=== PATIENT | female | born 1940 | race Caucasian/White ===

== ENCOUNTER 2022-10-05 19:31 | Emergency (ER) | payer MEDICARE, SELFPAY ==
--- NOTE | ~2022-10-05 | XR_ITS ---
EXAMINATION: XR hip BI 2V w AP pelvis DATE: 10/05/2022 20:41 INDICATION: Unwitnessed fall TECHNIQUE: Anteroposterior view of the pelvis and anteroposterior and frog-leg lateral views of the l eft hip and anteroposterior and frog-leg lateral views of the right hip and were obtained. COMPARISON: Lumbar spine radiographs dated 07/08/2019 FINDINGS: Old healed fractures of the bilateral superior and inferior pubic rami. No acute fractures identified although sensitivity for nondisplaced fractures decreased by diffuse osteopenia. Bilateral hips are normal alignment with normal joint spaces. Severe lower lumbar spondylosis. IMPRESSION: 1. Old bilateral superior and inferior pubic rami fractures. No acute osseous abnormality. Reviewed, dictated and finalized at location A. R CASE DETECTIVE IMPRESSION: 1. Old bilateral superior and inferior pubic rami fractures. No acute osseous a bnormality.
--- NOTE | ~2022-10-05 | CT_ITS ---
EXAMINATION: CT brain wo con DATE: 10/05/2022 20:48 INDICATION: Anticoagulated patient with unwitnessed fall from wheelchair. TECHNIQUE: Computed tomography (CT) of the head was performed without intravenous contrast. Sagittal and coronal reconstructions were performed. The mA was adjusted according to patient size. Iterative reconstruction technique was employed. The dose-length product was 605.33 mGy-cm. COMPARISON: None FINDINGS: No fracture. No acute intracranial hemorrhage, acute infarction or abnormal extra axial fluid collect ion. There is extensive scattered white matter hypoattenuation consistent with chronic small vessel i schemic disease. Symmetric prominence of the sulci and ventricles consistent with moderate age-approp riate diffuse cerebral volume loss. No mass/mass effect. Changes of bilateral intraocular lens replac ement. The orbits, paranasal sinuses and mastoid air cells are normal. Intracranial calcified cerebra l atherosclerosis is noted. IMPRESSION: 1. No fracture or acute intracranial process. 2. Age-related changes including moderate diffuse volume loss and extensive scattered white matter hy poattenuation consistent with chronic small vessel ischemic disease. Reviewed, dictated and finalized at location A. PLATFORM SUPERVISOR IMPRESSION: 1. No fracture or acute intracranial process. 2. Age-related changes including moderate diffuse volume loss and extensive sca ttered white matter hypoattenuation consistent with chronic small vessel ischem ic disease.
--- NOTE | ~2022-10-05 | XR_ITS ---
EXAMINATION: XR chest 1V portable DATE: 10/05/2022 20:41 INDICATION: Fall TECHNIQUE: frontal view of the chest was obtained. COMPARISON: Chest radiograph dated 07/08/[address] dated 07/13/2019 FINDINGS: The lungs are clear with no focal airspace opacities, pulmonary edema, pleural effusion or pneumothor ax. The cardiomediastinal silhouette is normal. Mitral annular calcifications. Excessive atherosclero tic calcification is along the thoracic aorta. A few old right rib fractures. Right rotator cuff arth ropathy with advanced glenohumeral osteoarthritis. IMPRESSION: 1. No acute cardiopulmonary disease. Reviewed, dictated and finalized at location A. ER
--- NOTE | ~2022-10-05 | CT_ITS ---
EXAMINATION: CT cervical spine wo con DATE: 10/05/2022 20:48 INDICATION: Unwitnessed fall from wheelchair TECHNIQUE: Computed tomography (CT) of the cervical spine was performed without intravenous contrast. Automated exposure control and iterative reconstruction technique were employed. The dose-length pro duct was 93.35 mGy-cm. COMPARISON: None FINDINGS: Moderate osteoarthritis at the atlantoaxial articulation. Chronic appearing nonunited fracture with s clerotic margins beginning at the left side of the base of the dens and extending inferiorly into the right across the cephalad portion of the vertebral body below the level of the base of the right lat eral mass. There is a second chronic appearing fracture extending between the right lateral mass and the right inferior articular process of C2. There is only mild displacement at both fracture planes. Mild exaggerated cervical kyphosis. Vertebral body heights are normal. No other acute fractures ident ified. Severe disc height loss and associated uncovertebral osteoarthritis at C3-C4 through C5-C6. Po sterior endplate osteophytes at each of these levels result in mild central canal stenosis. There is also bilateral multilevel moderate to severe facet osteoarthritis in the cervical and upper thoracic spine. This contributes to multilevel mild neural foraminal stenosis throughout the cervical spine. A therosclerotic calcific changes at the bilateral carotid bulbs. Cervical soft tissues are otherwise u nremarkable. Mild biapical pleural-parenchymal scarring with mild bronchial wall thickening and mucou s plugging a few prominent at the bilateral apices of the lungs. IMPRESSION: 1. Mild displacement of a chronic appearing nonunited fracture of C2 which extends across the base of the dens, also involving the right side of the cephalad vertebral body and the right lateral mass. C orrelate with clinical history. No other evident acute osseous abnormality. 2. Severe cervical spondylosis. Reviewed, dictated and finalized at location A. OPERATIONS MANAGER IMPRESSION: 1. Mild displacement of a chronic appearing nonunited fracture of C2 which exte nds across the base of the dens, also involving the right side of the cephalad vertebral body and the right lateral mass. Correlate with clinical history. No other evident acute osseous abnormality. 2. Severe cervical spondylosis.
[2022-10-05 19:32] VITALS: BP 153/93; PULSE 94; RESP 18; TEMP 36.3; O2SAT 100
--- NOTE | 2022-10-05 20:18 | ED.FALL ---
HPI - Fall General Chief Complaint: Fall <SIRIA Ly Last Filed: 10/05/22 23:21> Stated Complaint: fall <SIRIA Ly Last Filed: 10/05/22 23:21> Time Seen by Provider: 10/05/22 19:42 <SIRIA Ly Last Filed: 10/05/22 23:21> Source: patient and EMS <SIRIA Ly Last Filed: 10/05/22 23:21> Mode of arrival: EMS <SIRIA Ly Last Filed: 10/05/22 23:21> Limitations: dementia <SIRIA Ly Last Filed: 10/05/22 23:21> History of Present Illness HPI Narrative: This is an 82-year-old female that presents to the emergency department after a fall today at nursing facility. Patient reports she was in her kitchen and got her legs tangled up and fell. She does not report any certain injuries from the fall. Per nursing facility she fell out of her wheelchair. The fall was not witnessed. They are also reporting her being on blood thinners. Denies chest pain, abdominal pain, or vomiting. <SIRIA Ly Last Filed: 10/05/22 23:21> Related Data Allergies/Adverse Reactions: Allergies Allergy/AdvReac Type Severity Reaction Status Date / Time No Known Allergies Allergy Verified 10/03/22 12:15 <SIRIA Ly Last Filed: 10/05/22 23:21> Review of Systems Review of Systems: CONSTITUTIONAL: Denies fever EYES: Denies visual changes CARDIOVASCULAR: Denies chest pain, or edema. RESPIRATORY: Denies dyspnea. GASTROINTESTINAL: Denies abdominal pain, nausea, vomiting GENITOURINARY: Denies dysuria SKIN: Denies rash MUSCULOSKELETAL: Denies back pain, joint pain, or myalgia. NEUROLOGIC: Denies headache PSYCHIATRIC: Denies anxiety <SIRIA Ly Last Filed: 10/05/22 23:21> All systems reviewed & are unremarkable except as noted in HPI and below <Martha Lozoya PA-C - Last Filed: 10/05/22 23:21> [facility] Past Medical History Medical History: Medical History (Updated 10/07/22 @ 00:00 by Rosalia Sandhu) Cyst of buttocks Dementia Essential (primary) hypertension Odontoid fracture <Martha Lozoya PA-C - Last Filed: 10/05/22 23:21> Family History Family History: Family History Other Cerebrovascular accident Mother Hypertension <Martha Lozoya PA-C - Last Filed: 10/05/22 23:21> Social History Social History: Social History Smoking status: Never smoker <Martha Lozoya PA-C - Last Filed: 10/05/22 23:21> Exam Narrative: GENERAL: Elderly, thin, and in no acute distress. HEAD: Normocephalic, atraumatic. EYES: PERRLA and EOMI. ENT: Nares clear, no rhinorrhea or epistaxis. Mucous membranes moist. Oropharynx without tonsillar hypertrophy exudate or other lesions. Bilateral TMs pearly mir non-bulging NECK: Supple. No adenopathy or masses. CHEST: Clear to auscultation. No respiratory distress. No wheezes rales or rhonchi HEART: Regular rate and rhythm. No murmur heard. Normal peripheral pulses. ABDOMEN: Soft, nontender, nondistended, normal active bowel sounds. BACK: No midline thoracic or lumbar spine tenderness EXTREMITIES: Normal range of motion. No edema or obvious deformity. SKIN: Warm, dry, no rash. NEURO: No focal deficits. Alert and oriented x3. CN II-XII grossly intact PSYCH: Normal mood and affect <Martha Lozoya PA-C - Last Filed: 10/05/22 23:21> Course Course Emergency Course: Patient was updated on workup. Resting comfortably <Martha Lozoya PA-C - Last Filed: 10/05/22 23:21> AUTO GLASS WORKER/PA Physician Supervision For this encounter, I have reviewed the mid-level provider documentation, treatment plan and medical decision making. I have had [id number] time with the patient. physical exam revealed a 82-year-old female with no physical complaints at this time. I did do a thorough head-to-toe examination and I could find no areas of tender
[2022-10-05 21:03] LABS: Basophils Percent Auto 0.3 % (0.2-1.2); Eosinophils Absolute Auto 0.1 K/mm3 (0-0.3); Eosinophils Percent Auto 1.3 % (0-4.4); Hemoglobin 8.7 g/dL (12.0-15.0); Immature Granulocyte Absolute 0.07 K/mm3 (0.00-0.031); Immature Granulocyte Percent A 0.7 % (0-0.5); Lymphocytes Percent Auto 11.9 % (18.3-44.2); Mean Corpuscular HGB Conc 33.5 g/dl (32-36); Mean Corpuscular Hemoglobin 30.4 pg (26-34); Mean Corpuscular Volume 90.9 fl (80-100); Mean Platelet Volume 7.9 fl (7.4-10.4); Monocytes Percent Auto 9.7 % (2.6-8.5); Neutrophils Absolute Auto 7.7 K/mm3 (1.3-6.7); Neutrophils Percent Auto 76.1 % (45.5-73.1); Platelet Count Result 321 k/mm3 (150-375); Red Blood Count 2.86 M/mm3 (4.2-5.4); Red Cell Distribution Width 14.8 % (11.5-14.5); White Blood Count 10.1 K/mm3 (4.5-10.0)
[2022-10-05 21:17] LABS: Anion Gap 7 mmol/L (8-16); Blood Urea Nitrogen 18 mg/dL (7-17); Calcium 8.6 mg/dL (8.4-10.2); Carbon Dioxide 33 mmol/L (22-30); Chloride 90 mmol/L (98-107); Estimated CRCL calculation 54 ml/min; Estimated Glomerular Filt Rate > 60; Glucose 117 mg/dL (65-110); Potassium 2.9 mmol/L (3.4-5.0); Sodium 130 mmol/L (137-145)
[2022-10-05 21:23] LABS: Add Urine Microscopic? YES; Appearance Urine Clear (Clear); Bilirubin Urine Negative (Negative); Blood Urine 2+ (Negative); Color Urine Light Yellow (Yellow); Glucose Urine UA Negative (Negative); Ketones Urine Negative (Negative); Leukocyte Esterase Ur 1+ LEU/UL (Negative); Nitrate Urine Negative (Negative); Protein Urine Negative (Negative); Urobilinogen Urine 0.2 mg/dL (<2.0)
[2022-10-05 21:28] LABS: Amorphous Sediment Urine Few; Bacteria Urine Trace /hpf; Budding Yeast Urine Present /hpf; Mucus Urine Rare /lpf; Squamous Epithelial Cell Urine Many /hpf (Few); WBC Urine 16-20 /hpf
[2022-10-05] MEDS: POTASSIUM CHLORIDE 20 MEQ PACKET (FOR LIQUID) 40 MEQ PO ×2 (22:13→23:22)
--- NOTE | 2022-10-05 22:59 | PC.NURSE ---
called [facility] to request transport. ETA [id number]
--- NOTE | 2022-10-05 23:01 | PC.NURSE ---
called [facility] to request transport. Accepted
--- NOTE | 2022-10-05 23:06 | PC.NURSE ---
[facility] called with ETA of 1 - 1 1/2 hour.
--- NOTE | 2022-10-05 23:09 | PC.NURSE ---
cancelled [facility]
[2022-10-05 23:24] VITALS: BP 148/88; PULSE 88; RESP 20; O2SAT 100
--- NOTE | 2022-10-05 23:50 | PC.NURSE ---
[facility] here
== END 2022-10-06 00:04 ==
PROVIDERS: Physician Assistant; Emergency Provider Emergency Medicine; PCP Internal Medicine
DX: N39.0 Urinary tract infection, site not specified (principal); E87.6 Hypokalemia; E87.1 Hypo-osmolality and hyponatremia; F03.90 Unspecified dementia, unspecified severity, without behavioral disturbance, psychotic disturbance, mood disturbance, and anxiety; I10 Essential (primary) hypertension; M47.812 Spondylosis without myelopathy or radiculopathy, cervical region; Z79.01 Long term (current) use of anticoagulants; M84.48XK Pathological fracture, other site, subsequent encounter for fracture with nonunion; W19.XXXA Unspecified fall, initial encounter
CPT/HCPCS: 36415; 70450; 71045; 72125; 73521; 80048; 81001; 85025; 87086; 87088; 99284; A9270

== ENCOUNTER → 2023-02-21 11:09 | Outpatient (CLI) | payer MEDICARE, SELFPAY ==
--- NOTE | ~2023-02-21 | XR_ITS ---
AP and lateral views of the left hip Clinical history: Pain Findings: No acute fracture or dislocation is seen. Osseous alignment is anatomic. The left hip joint is unremarkable.. Vascular calcifications are noted. Impression: No significant abnormality is seen. Reviewed, dictated and finalized at location . Impression: No significant abnormality is seen.
--- NOTE | ~2023-02-21 | XR_ITS ---
AP and lateral views of the left femur Clinical History: Pain Findings: No acute fracture or dislocation is seen. Osseous alignment is anatomic. Visualized joint s paces are grossly preserved. Vascular calcifications noted. Impression: No significant abnormality seen. Reviewed, dictated and finalized at location . Impression: No significant abnormality seen.
== END ==
PROVIDERS: PCP Family Medicine Adolescent Medicine; Visit Provider Family Medicine Adolescent Medicine
DX: M79.652 Pain in left thigh (principal)
CPT/HCPCS: 73502; 73552

== ENCOUNTER 2023-08-22 16:25 | Inpatient (IN) | payer MEDICARE, SELFPAY ==
--- NOTE | ~2023-08-22 | CT_ITS ---
EXAMINATION: CT abd pelvis lumbar w con DATE: 08/22/2023 20:43 INDICATION: Abdomen pain. Urinary retention. TECHNIQUE: Computed tomography (CT) of the abdomen, pelvis and lumbar spine was performed with 100 cc Omnipaque 350 intravenous contrast. The dose-length product was 186.57 mGy-cm. Automated exposure co ntrol and iterative reconstruction technique were employed. COMPARISON: CT dated 07/13/2019 FINDINGS: Lung bases are unremarkable. Heart size normal. No significant pleural or pericardial effus ion. The liver is enlarged. The spleen, pancreas, right adrenal gland is unremarkable. There is a 1.6 cm low-density mass in the left adrenal gland, most likely benign adenoma. There are bilateral renal cysts. Gallbladder is present. Nonobstructive bowel gas pattern. There is a new burst fracture of L2 with retropulsion into the canal causing central canal and bilateral neuroforaminal narrowing, left greater than right. There is severe degenerative disc disease at L4-5 with grade 1 spondylolisthesis. There are bilateral inferior pubic rami fractures which are healed. There is atherosclerosis and ect vasyl of the abdominal aorta without aneurysm. There is moderate multilevel lumbar spondylosis with de xtroscoliosis. IMPRESSION: 1. New L2 burst fracture, possibly acute or subacute with retropulsion into the canal causing signifi cant central canal and bilateral neural foraminal stenosis. 2: Hepatomegaly. Reviewed, dictated and finalized at location A. IMPRESSION: 1. New L2 burst fracture, possibly acute or subacute with retropulsion into the canal causing significant central canal and bilateral neural foraminal stenosi s. 2: Hepatomegaly.
--- NOTE | ~2023-08-22 | MR_ITS ---
EXAMINATION: MR lumbar spine wo/w con DATE: 08/23/2023 09:05 INDICATION: Back pain. Urinary retention. TECHNIQUE: Magnetic resonance imaging (MRI) of the lumbar spine was performed without and with 7 mL M ultiHance intravenous contrast. COMPARISON: Lumbar spine MRI 07/11/2019, CT 08/22/2023 FINDINGS: There is 17 degrees dextroscoliosis of thoracolumbar spine. There is a burst fracture of T1 0 with less than 1/5 height loss, retropulsion of bone 2 mm into central spinal canal, and distinct f racture line with edema-like marrow signal intensity. There is a burst fracture of L2 with greater th an 4/5 loss of height, retropulsion bone 6 mm into central spinal canal, and edema-like marrow signal intensity. There is 4 mm anterolisthesis of L4 on L5. There is mildly decreased disc height at L3-L4 and severely decreased disc height at L4-L5. The distal spinal cord signal intensity is normal. The conus medullaris is at L1. There are cysts in the kidneys measuring up to 11 mm on the left. The foll owing disc levels are specifically discussed: L1-L2: The disc does not extend beyond the endplate margin. There is mild bilateral facet joint osteo arthritis. There is mild bilateral neural foraminal stenosis. There is no central canal stenosis. L2-L3: The disc does not extend beyond the endplate margin. There is mild bilateral facet joint osteo arthritis. There is moderate right and mild left neural foraminal stenosis. There is mild central can al stenosis. L3-L4: The disc is bulging. There is mild bilateral facet joint osteoarthritis. There is mild bilater al neural foraminal stenosis. There is mild central canal stenosis. L4-L5: The disc does not extend beyond the endplate margin. There is severe bilateral facet joint ost eoarthritis. There is mild bilateral neural foraminal stenosis. There is mild central canal stenosis. L5-S1: The disc is bulging. There is severe bilateral facet joint osteoarthritis. There is mild bilat eral neural foraminal stenosis. There is mild central canal stenosis. IMPRESSION: 1. T10 burst fracture, likely subacute. 2. L2 burst fracture, likely subacute. 3. Severe lumbar spondylosis. 4. Thoracolumbar dextroscoliosis. Reviewed, dictated and finalized at location E.
[2023-08-22 16:31] VITALS: BP 137/70; PULSE 110; RESP 18; TEMP 36.6; O2SAT 100
[2023-08-22 18:03] LABS: Appearance Urine Clear (Clear); Bilirubin Urine Negative (Negative); Blood Urine Negative (Negative); Color Urine Yellow (Yellow); Glucose Urine UA Negative (Negative); Ketones Urine Negative (Negative); Leukocyte Esterase Ur Negative LEU/UL (Negative); Nitrate Urine Negative (Negative); Protein Urine Negative (Negative); Specific Grav Ur 1.011 (1.001-1.035); Urobilinogen Urine 0.2 mg/dL (<2.0)
[2023-08-22 18:11] LABS: Add Urine Microscopic? NO
--- NOTE | 2023-08-22 18:52 | ED.FEMALEGU ---
HPI - Female Genitourinary General Chief complaint: Urogenital-Female Stated complaint: unable to pee since 10am Time Seen by Provider: 08/22/23 18:51 History of Present Illness HPI Narrative: Patient is an 83-year-old female with history of dementia, HTN here with abdominal pain, back pain and urinary retention. patient notes that she last urinated yesterday before she went to bed, unknown what time this was. This morning she states that she was unable to urinate. She then began experiencing diffuse lower back pain, worse on the sides and on the midline. She denies any falls. She denies any prior history of back issues. She denies any saddle anesthesia or numbness or weakness in her lower extremities. She notes she had some increased back pain throughout the day today and continued to be unable to urinate which was the reason for presentation to the emergency department. She notes she continues to have lower back pain and abdominal pain even after catheter was placed by nursing staff. She denies fever or chills. She notes normal bowel movements. No prior abdominal surgeries. No prior history of urinary retention or incontinence. No recent changes in medications. Related Data Allergies Allergy/AdvReac Type Severity Reaction Status Date / Time No Known Allergies Allergy Verified 02/15/23 09:48 Review of Systems Review of Systems: All systems reviewed & are unremarkable except as noted in HPI and below PMFSH Past Medical History Medical History (Updated 08/22/23 @ 21:45 by Kristina Johnson MD) Cyst of buttocks Dementia Essential (primary) hypertension Odontoid fracture Family History Family History Other Cerebrovascular accident Mother Hypertension Social History Social History Smoking status: Never smoker Exam Narrative: GENERAL: Cachectic, and in no acute distress. HEAD: Normocephalic, atraumatic. EYES: PERRLA and EOMI. ENT: Nares clear. Mucous membranes moist. NECK: Supple. CHEST: Clear to auscultation. No respiratory distress. HEART: Tachycardic. Normal peripheral pulses. ABDOMEN: Diffusely tender, no rebound or guarding. EXTREMITIES: Normal range of motion. No edema. no midline lumbar tenderness but she does have bilateral paraspinal tenderness in the lumbar area. SKIN: Warm, dry, no rash. NEURO: No focal deficits. Alert and oriented x3. PSYCH: Normal mood and affect. Course Course Emergency Course: Chart review performed. Patient here with decreased urination per triage note. Last visit here was about 1 year ago for UTI. Documented history of dementia and HTN. Triage vitals normal aside from tachycardia at 110. Triage UA negative for UTI. Catheter placed by nursing with 500 cc output. Patient seen evaluated, no acute distress. History obtained from patient and family at bedside. Reproducible bilateral paraspinal lumbar tenderness as well as diffuse abdominal tenderness. We will do CT abdomen pelvis as well as CT lumbar spine reconstitution. Small dose of morphine ordered for pain. Lab work reviewed. Mild leukocytosis of 11.2, non specific. Renal function appears to be at her baseline. Mild hyponatremia however her prior tests are in similar range. CT lumbar spine shows new L2 burst fracture, possibly acute or subacute with retropulsion into canal causing significant central canal stenosis. Will touch base with neurosurgery applications sales consultant. Spoke with neurosurgery applications sales consultant, Dr. Clements, recommend MRI for further information. Will admit to hospitalist. Additional pain medication ordered. Extensive conversation with patient and family at bedside regarding code status. Patient would like to be DNR/DNI. Spoke with Dr. Monk who accepts patient for admission. Vital Signs Vital signs: Vital Signs Temperature 97.9 F 08/22/23 16:31 Pulse Rate 110 H 08/22/23 16:31 Respira
[2023-08-22 19:24] LABS: Basophils Percent Auto 0.2 % (0.2-1.2); Hematocrit 28.1 % (37.0-47.0); Hemoglobin 9.5 g/dL (12.0-15.0); Immature Granulocyte Absolute 0.05 K/mm3 (0.00-0.031); Immature Granulocyte Percent A 0.4 % (0-0.5); Lymphocytes Absolute Auto 1.01 K/mm3 (0.9-3.2); Mean Corpuscular HGB Conc 33.8 g/dl (32-36); Mean Corpuscular Hemoglobin 30.6 pg (26-34); Mean Corpuscular Volume 90.6 fl (80-100); Mean Platelet Volume 8.4 fl (7.4-10.4); Monocytes Absolute Auto 0.7 K/mm3 (0.1-0.6); Monocytes Percent Auto 6.1 % (2.6-8.5); Neutrophils Absolute Auto 9.4 K/mm3 (1.3-6.7); Neutrophils Percent Auto 84.3 % (45.5-73.1); Platelet Count Result 395 k/mm3 (150-375); Red Cell Distribution Width 13.1 % (11.5-14.5); White Blood Count 11.2 K/mm3 (4.5-10.0)
[2023-08-22 19:34] LABS: Alanine Aminotransferase 18 U/L (6-35); Albumin Level 4.5 g/dL (3.5-5.1); Alkaline Phosphatase 129 U/L (38-126); Anion Gap 14 mmol/L (8-16); Aspartate Amino Transferase 28 U/L (14-36); Bilirubin,Total 0.6 mg/dL (0.2-1.3); Blood Urea Nitrogen 17 mg/dL (7-17); Calcium 10.3 mg/dL (8.4-10.2); Carbon Dioxide 20 mmol/L (22-30); Chloride 94 mmol/L (98-107); Estimated CRCL calculation 36 ml/min; Estimated Glomerular Filt Rate > 60; Glucose 118 mg/dL (65-110); Sodium 128 mmol/L (137-145)
[2023-08-22 20:00] LABS: INR 0.9; Lipase 64 U/L (23-300); Prothrombin Time 12.7 Seconds (11.1-14.7)
[2023-08-22 20:01] LABS: Partial Thromboplastin Time 31.1 SECONDS (22.3-36.8)
[2023-08-22] MEDS: MORPHINE SULFATE (*CRX) 2 MG/ML INJ IV PUSH ×2 (20:12→21:53)
[2023-08-22] MEDS: ONDANSETRON INJ 4 MG/2 ML VIAL IV PUSH (20:12)
[2023-08-22 20:16] VITALS: PULSE 102; RESP 22; O2SAT 100
[2023-08-22 21:45] VITALS: BP 118/68; PULSE 95; RESP 14; O2SAT 100
[2023-08-22 22:28] VITALS: BP 118/74; PULSE 101; RESP 15; O2SAT 100
--- NOTE | 2023-08-22 23:22 | ADMGEN ---
This patient, Emma Au, was admitted to [facility] Surg Room 309-01. Patient/family oriented to hospital policies and general routines including ID bracelet, bed and alarms, visiting hours, pain management, procedures, bathroom and other care routines, personal items, smoking policy, room service/diet, and visiting hours. Information on how to activate the Rapid Response Team has been discussed. Patient/Family are encouraged to report perceived risks to care and to ask questions if they do not understand what they are told or what they should do.
[2023-08-22 23:30] VITALS: BP 108/76; PULSE 98; RESP 18; TEMP 36.6; O2SAT 100; BMI 15.8
--- NOTE | 2023-08-22 23:54 | P.HP_ITS ---
H&P: HPI History of Present Illness Date/Time: 08/22/23 23:54 Chief Complaint: he is a very pleasant 83 years old white female with the dementia who is here with complaints PMFSH Past Medical History Medical History (Updated 08/22/23 @ 21:45 by Kristina Johnson MD) Cyst of buttocks Dementia Essential (primary) hypertension Odontoid fracture Family History Family History Other Cerebrovascular accident Mother Hypertension Social History Social History Smoking status: Never smoker Meds Home Medications and Allergies Home Medications Medication Instructions Recorded Confirmed Type amlodipine 5 mg tablet 5 mg PO DAILY #90 tabs 10/19/22 02/15/23 Rx lisinopril 20 mg tablet See Rx Instructions .Route 06/23/23 Rx .COMPLEX #180 tabs Allergies Allergy/AdvReac Type Severity Reaction Status Date / Time No Known Allergies Allergy Verified 02/15/23 09:48 Vital Signs Vital Signs - 24 hr 08/22/23 16:31 08/22/23 20:16 08/22/23 21:45 Temperature 36.6 C Pulse Rate 110 H 102 H 95 Respiratory Rate 18 22 H 14 Blood Pressure 137/70 118/68 Pulse Oximetry 100 100 100 Oxygen Delivery Room Air 08/22/23 22:28 Temperature Pulse Rate 101 H Respiratory Rate 15 Blood Pressure 118/74 Pulse Oximetry 100 Oxygen Delivery H&P: Results Labs Labs: Short CBC 08/22/23 Range/Units 19:16 WBC 11.2 H (4.5-10.0) K/mm3 Hgb 9.5 L (12.0-15.0) g/dL Hct 28.1 L (37.0-47.0) % Plt Count 395 H (150-375) k/mm3 BMP 08/22/23 19:16 Sodium 128 L Potassium 4.0 Chloride 94 L Carbon Dioxide 20 L BUN 17 Creatinine 0.60 L Glucose 118 H Calcium 10.3 H Liver Function 08/22/23 Range/Units 19:16 Total Bilirubin 0.6 (0.2-1.3) mg/dL AST 28 (14-36) U/L ALT 18 (6-35) U/L Alkaline Phosphatase 129 H (38-126) U/L Albumin 4.5 (3.5-5.1) g/dL Urine 08/22/23 Range/Units 17:49 Urine Color Yellow (Yellow) Urine Appearance Clear (Clear) Urine pH 8.0 (5.0-9.0) Ur Specific Reynolds 1.011 (1.001-1.035) Urine Protein Negative (Negative) mg/dL Urine Glucose (UA) Negative (Negative) mg/dL
--- NOTE | 2023-08-22 23:55 | PM.IMHP ---
H&P: HPI History of Present Illness Date/Time: 08/22/23 23:55 Chief Complaint: Patient brought to the ER for evaluation by her sister with complains of back pain, lower abdominal pain and inability to urinate Narrative: She is a very pleasant 83 years old white female who was brought to the ER for evaluation by her sister. She is complaining of back pain for the last couple of days which is getting worse and she also was unable to urinate whole day today causing lower abdominal pain. Her last urination was yesterday before she went to bed. Her sister got concerned and brought her to the ER for evaluation. Workup was done which showed bladder distention requiring Velazquez catheter placement and drainage of urine. CT scan of the abdomen and pelvis with lumbar spine was done which showed new L2 burst fracture causing significant central canal and bilateral neutral foraminal stenosis. ER physician was concerned that her urinary retention could be possibly due to nerve compression caused by the new L2 burst fracture. Neurology was consulted who want to admit the patient for MRI in a.m. and further evaluation. Review of Systems Review of Systems: she denies any chest pain, palpitation, fever rigor chills, nausea vomiting, dizziness or loss of consciousness All systems reviewed & are unremarkable except as noted in HPI and below PMFSH Past Medical History Medical History Cyst of buttocks Dementia Essential (primary) hypertension Odontoid fracture Family History Family History Other Cerebrovascular accident Mother Hypertension Social History Social History Smoking status: Never smoker Meds Home Medications and Allergies Home Medications Medication Instructions Recorded Confirmed Type amlodipine 5 mg tablet 5 mg PO DAILY #90 tabs 10/19/22 02/15/23 Rx lisinopril 20 mg tablet See Rx Instructions .Route 06/23/23 Rx .COMPLEX #180 tabs Allergies Allergy/AdvReac Type Severity Reaction Status Date / Time No Known Allergies Allergy Verified 02/15/23 09:48 Vital Signs Vital Signs - 24 hr 08/22/23 16:31 08/22/23 20:16 08/22/23 21:45 Temperature 36.6 C Pulse Rate 110 H 102 H 95 Respiratory Rate 18 22 H 14 Blood Pressure 137/70 118/68 Pulse Oximetry 100 100 100 Oxygen Delivery Room Air 08/22/23 22:28 08/22/23 23:30 Temperature 36.6 C Pulse Rate 101 H 98 Respiratory Rate 15 18 Blood Pressure 118/74 108/76 Pulse Oximetry 100 100 Oxygen Delivery Exam Narrative: PHYSICAL EXAMINATION: Vital signs: Please see the chart General physical exam: very pleasant female, lying in bed, feels better after placement of Velazquez catheter and drainage of urine Head/eyes: Atraumatic, EOMI, PERRLA ENT: Moist mucous membranes, nasal passages clear Neck: Supple, full range of motion, trachea midline CVS: S1 + S2, regular rate and rhythm, no murmurs Respiratory: Bilaterally fair air entry in both lung pedersen, mild B/L crackles, symmetric chest expansion, no distress Abdomen: Soft, non-tender, bowel sounds +ve, no organomegaly Extremities: No clubbing, no cyanosis, no edema, no calf tenderness Musculoskeletal: Moves all, adequate range of motion, no muscle spasms, + bilateral straight leg raising tests Skin: Warm, dry, no jaundice, no cyanosis Neurological: Awake, alert, cranial nerves II-XII intact, no focal neurological deficits Psychiatric: Normal mood, non suicidal H&P: Results Labs Labs: Short CBC 08/22/23 Range/Units 19:16 WBC 11.2 H (4.5-10.0) K/mm3 Hgb 9.5 L (12.0-15.0) g/dL Hct 28.1 L (37.0-47.0) % Plt Count 395 H (150-375) k/mm3 BMP 08/22/23 19:16 Sodium 128 L Potassium 4.0 Chloride 94 L Carbon Dioxide 20 L BUN 17 Creatinine 0.60 L Glucose 118 H Calcium 10.3 H Liver Function 08/22/23 Ra
[2023-08-23] MEDS: SODIUM CHLORIDE 0.9% IV 1,000 ML 75 ML IV CONT (03:59)
[2023-08-23 06:00] VITALS: BP 118/66; PULSE 80; RESP 18; TEMP 36.4; O2SAT 100
[2023-08-23 07:00] LABS: Basophils Percent Auto 0.3 % (0.2-1.2); Eosinophils Percent Auto 0.1 % (0-4.4); Hematocrit 27.1 % (37.0-47.0); Hemoglobin 8.8 g/dL (12.0-15.0); Immature Granulocyte Absolute 0.02 K/mm3 (0.00-0.031); Immature Granulocyte Percent A 0.3 % (0-0.5); Lymphocytes Absolute Auto 1.34 K/mm3 (0.9-3.2); Mean Corpuscular HGB Conc 32.5 g/dl (32-36); Mean Corpuscular Hemoglobin 30.6 pg (26-34); Mean Corpuscular Volume 94.1 fl (80-100); Mean Platelet Volume 8.5 fl (7.4-10.4); Monocytes Absolute Auto 0.7 K/mm3 (0.1-0.6); Monocytes Percent Auto 9.3 % (2.6-8.5); Neutrophils Absolute Auto 5.7 K/mm3 (1.3-6.7); Platelet Count Result 390 k/mm3 (150-375); Red Blood Count 2.88 M/mm3 (4.2-5.4); Red Cell Distribution Width 13.2 % (11.5-14.5); White Blood Count 7.9 K/mm3 (4.5-10.0)
[2023-08-23 07:13] LABS: Anion Gap 8 mmol/L (8-16); Blood Urea Nitrogen 15 mg/dL (7-17); Calcium 9.7 mg/dL (8.4-10.2); Carbon Dioxide 24 mmol/L (22-30); Chloride 98 mmol/L (98-107); Estimated CRCL calculation 35 ml/min; Estimated Glomerular Filt Rate > 60; Glucose 105 mg/dL (65-110); Magnesium 1.9 mg/dL (1.6-2.3); Phosphorus 4.6 mg/dL (2.5-4.5); Potassium 3.7 mmol/L (3.4-5.0); Sodium 130 mmol/L (137-145)
--- NOTE | 2023-08-23 08:27 | PM.IMPN ---
Progress Note: A&P Assessment and Plan (1) Acute urinary retention: Code(s): R33.8 - Other retention of urine Status: Acute Assessment and Plan: 08/23/23: Patient complaining of urinary retention in arrival to the ED, Velazquez catheter placed with 500 mL of urine drained initially. Will discontinue the catheter today, and check a post void residual. Back pain seem to be relieved once catheter was placed and bladder was drained. (2) Burst fracture of lumbar vertebra: Qualifiers: Encounter type: initial encounter Fracture type: closed Qualified Code(s): S32.001A - Stable burst fracture of unspecified lumbar vertebra, initial encounter for closed fracture Code(s): S32.001A - Stable burst fracture of unspecified lumbar vertebra, initial encounter for closed fracture Status: Chronic Assessment and Plan: 08/23/23: CT of the abdomen, pelvis, lumbar with contrast revealed a new L2 burst fracture, possibly acute or subacute with retropulsion into the canal in significant central canal and bilateral neural foraminal stenosis, hepatomegaly MRI of the lumbar spine shows a T10 burst fracture likely subacute, L2 burst fracture likely subacute, severe lumbar spondylosis, thoracolumbar dextroscoliosis. Neurosurgery was consulted. Spoke with Neurosurgery today who believes that the L2 and the T10 burst fractures are subacute and this is not what has caused her back pain or her urinary retention as there was no stenosis or compression noted on her MRI. No need for surgical intervention from their standpoint. Patient denies pain this morning (3) Essential (primary) hypertension: Code(s): I10 - Essential (primary) hypertension Status: Chronic Assessment and Plan: 08/23/23: Blood pressure ranging 108/76 to 118/74 Continue lisinopril 40 mg p.o. daily Continue amlodipine 5 mg p.o. daily (4) Anemia: Code(s): D64.9 - Anemia, unspecified Status: Chronic Assessment and Plan: 08/23/23: Hemoglobin 8.8, hematocrit 27.1 (5) Atherosclerotic heart disease of [place] coronary artery without angina pectoris: Code(s): I25.10 - Atherosclerotic heart disease of [place] coronary artery without angina pectoris Status: Chronic Assessment and Plan: 08/23/23: Of note (6) Aortic atherosclerosis: Code(s): I70.0 - Atherosclerosis of aorta Status: Chronic Assessment and Plan: 08/23/23: Of note Time Spent With Patient Time with patient: Greater than 35 minutes Subjective Date/time seen: 08/23/23 08:27 Interval history: Interval History: This is an 83 year old female who presented to the hospital on 08/22/23 with complaints of lower back pain for the last 3 days and inability to urinate. Her sister brought her to the ER for further evaluation. Workup in the hospital shown that her bladder was distended and a Velazquez was placed, 500 mil urine drained initially. Patient immediately felt relief in her back pain. She also had a CT scan of her abdomen, pelvis, lumbar with contrast which shows a new L2 burst fracture possibly acute or subacute with retropulsion into the canal causing significant central canal and bilateral neural foraminal stenosis, hepatomegaly. She also had a lumbar spine MRI with and without contrast which revealed a T10 burst fracture likely subacute, L2 burst fracture likely subacute, severe lumbar spondylosis and Thoracolumbar dextroscoliosis. Patient had a urinalysis also performed which was negative for any acute infection. Neurosurgery was consulted. On examination today patient is alert oriented x4, lying in the bed. She denies any pain to her lower back today. She does have a Velazquez in place due to urinary retention while in the ER. 500ml of urine was drained once catheter was placed. Vital signs are stable, she is on room air, she is afebrile. She denies fevers, chills, headache, nausea, vomiting, diarrhea, chest pain, shortn
[2023-08-23] MEDS: lisinopriL 20 MG TABLET 40 MG BY MOUTH (09:47)
[2023-08-23] MEDS: amLODIPine BESYLATE 5 MG TABLET PO (09:47)
--- NOTE | 2023-08-23 12:18 | WPDNEUROSGCN ---
Assessment and Plan Assessment and plan (1) Lumbar compression fracture: Code(s): S32.000A - Wedge compression fracture of unspecified lumbar vertebra, initial encounter for closed fracture Status: Acute Assessment and Plan: The patient is a very pleasant 83 year old female who presented to the ED with a complaint of urinary retention. She noted some back pain in the ED but denies back pain at today's consultation. She denies radiating radicular symptoms. MRI shows the compression fracture at L2 and another milder in the lower thoracic spione. These fractures have a subacute appearance and do not appear to have happened within the past 24 hours. I would expect more significant low back pain or radiating symptoms if the patient's compression fracture were causing acute urinary retention. The fracture appears stable and is not currently symptomatic. I would recommend symptomatic management of the compression fracture and removal of the catheter with a voiding trial. Please call with any additional questions. Consult date: 08/23/23 HPI: Emma Au is a 83 year old female Patient is an 83-year-old female with history of dementia, HTN who presented overnight to the ED with a chief complaint of abdominal pain, back pain and urinary retention.? patient notes that she last urinated on the day prior to admission (08/21), unknown what time this was.? The morning of 08/22 she states that she was unable to urinate.? She then began experiencing diffuse lower back pain, worse on the sides and on the midline.? She denies any falls.? She denies any prior history of back issues.? She denies any saddle anesthesia or numbness or weakness in her lower extremities.? She notes she had some increased back pain throughout the day and continued to be unable to urinate which was the reason for presentation to the emergency department.? CT showed a compression fracture at L2. A hardin catheter was placed in the ED with 500 cc in the bladder. A subsequent MRI does show a planum fracture at L2 with retropulsion but only mild to moderate central stenosis. On the CT the pedicles are intact. There is no suggestion of edema within the vertebral body. This morning the patient denies back pain. She denies radiating pain or sensory change in the lower extremities. She denies fever or chills.? She notes normal bowel movements.? No prior abdominal surgeries.? No prior history of urinary retention or incontinence. No recent changes in medications We do not have prior imaging for review at this institution [facility] Past Medical History Medical History Cyst of buttocks Dementia Essential (primary) hypertension Odontoid fracture Family History Family History Other Cerebrovascular accident Mother Hypertension Social History Social History Smoking status: Never smoker Alcohol intake: never Substance use: never Lack of Transportation: No Lack of Food: Never True Current Housing: I Have Housing Concerned About Future Housing: No Difficulty Paying Gas/Electric Bills: No Difficulty Paying for Meds: No Currently Unemployed: No Education: High School Diploma/GED Difficulty w/ Childcare or Family Care: No Spiritual care concerns: No Meds Home Medications and Allergies Home Medications Medication Instructions Recorded Confirmed Type amlodipine 5 mg tablet 5 mg PO DAILY #90 tabs 10/19/22 08/23/23 Rx lisinopril 20 mg tablet 40 mg DAILY 08/23/23 08/23/23 History Allergies Allergy/AdvReac Type Severity Reaction Status Date / Time No Known Allergies Allergy Verified 02/15/23 09:48 Vital Signs Vital Signs - 24 hr 08/22/23 16:31 08/22/23 20:16 08/22/23 21:45 Temperature 97.9 F Pulse Rate 110 H 102 H 95 Respiratory Rate 18 22 H 14 Blood Pressure 137/70 1
--- NOTE | 2023-08-23 12:45 | WPDNEUROSGCN ---
Consult date: 08/23/23 Reason for consult: HPI: Emma Au is a 83 year old female [facility] Past Medical History Medical History Cyst of buttocks Dementia Essential (primary) hypertension Odontoid fracture Family History Family History Other Cerebrovascular accident Mother Hypertension Social History Social History Smoking status: Never smoker Alcohol intake: never Substance use: never Lack of Transportation: No Lack of Food: Never True Current Housing: I Have Housing Concerned About Future Housing: No Difficulty Paying Gas/Electric Bills: No Difficulty Paying for Meds: No Currently Unemployed: No Education: High School Diploma/GED Difficulty w/ Childcare or Family Care: No Spiritual care concerns: No Meds Home Medications and Allergies Home Medications Medication Instructions Recorded Confirmed Type amlodipine 5 mg tablet 5 mg PO DAILY #90 tabs 10/19/22 08/23/23 Rx lisinopril 20 mg tablet 40 mg DAILY 08/23/23 08/23/23 History Allergies Allergy/AdvReac Type Severity Reaction Status Date / Time No Known Allergies Allergy Verified 02/15/23 09:48 Vital Signs Vital Signs - 24 hr 08/22/23 16:31 08/22/23 20:16 08/22/23 21:45 Temperature 36.6 C Pulse Rate 110 H 102 H 95 Respiratory Rate 18 22 H 14 Blood Pressure 137/70 118/68 Pulse Oximetry 100 100 100 Oxygen Delivery Room Air 08/22/23 22:28 08/22/23 23:30 08/23/23 06:00 Temperature 36.6 C 36.4 C Pulse Rate 101 H 98 80 Respiratory Rate 15 18 18 Blood Pressure 118/74 108/76 118/66 Pulse Oximetry 100 100 100 Oxygen Delivery 08/23/23 09:45 Temperature Pulse Rate Respiratory Rate Blood Pressure Pulse Oximetry Oxygen Delivery Room Air Results Labs 08/23/23 06:38 08/23/23 06:38 Labs: Short CBC 08/22/23 08/23/23 Range/Units 19:16 06:38 WBC 11.2 H 7.9 (4.5-10.0) K/mm3 Hgb 9.5 L 8.8 L (12.0-15.0) g/dL Hct 28.1 L 27.1 L (37.0-47.0) % Plt Count 395 H 390 H (150-375) k/mm3 BMP 08/22/23 08/23/23 19:16 06:38 Sodium 128 L 130 L Potassium 4.0 3.7 Chloride 94 L 98 Carbon Dioxide 20 L 24 BUN 17 15 Creatinine 0.60 L 0.60 L Glucose 118 H 105 Calcium 10.3 H 9.7 Liver Function 08/22/23 Range/Units 19:16 Total Bilirubin 0.6 (0.2-1.3) mg/dL AST 28 (14-36) U/L ALT 18 (6-35) U/L Alkaline Phosphatase 129 H (38-126) U/L Albumin 4.5 (3.5-5.1) g/dL Urine 08/22/23 Range/Units 17:49 Urine Color Yellow (Yellow) Urine Appearance Clear (Clear) Urine pH 8.0 (5.0-9.0) Ur Specific [place] 1.011 (1.001-1.035) Urine Protein Negative (Negative) mg/dL Urine Glucose (UA) Negative (Negative) mg/dL
[2023-08-23 12:51] VITALS: BMI 15.8
[2023-08-23 14:00] VITALS: BP 115/57; PULSE 93; RESP 18; TEMP 36.7; O2SAT 98
[2023-08-23 20:10] VITALS: PULSE 93; RESP 18; O2SAT 98
[2023-08-23 21:53] VITALS: BP 133/86; PULSE 100; RESP 20; TEMP 36.5; O2SAT 96
[2023-08-24 05:44] LABS: Basophils Percent Auto 0.2 % (0.2-1.2); Eosinophils Percent Auto 0.4 % (0-4.4); Hematocrit 29.4 % (37.0-47.0); Hemoglobin 9.6 g/dL (12.0-15.0); Immature Granulocyte Absolute 0.03 K/mm3 (0.00-0.031); Immature Granulocyte Percent A 0.4 % (0-0.5); Lymphocytes Absolute Auto 1.45 K/mm3 (0.9-3.2); Mean Corpuscular HGB Conc 32.7 g/dl (32-36); Mean Corpuscular Hemoglobin 30.6 pg (26-34); Mean Corpuscular Volume 93.6 fl (80-100); Mean Platelet Volume 8.6 fl (7.4-10.4); Monocytes Absolute Auto 0.8 K/mm3 (0.1-0.6); Monocytes Percent Auto 8.9 % (2.6-8.5); Neutrophils Absolute Auto 6.2 K/mm3 (1.3-6.7); Neutrophils Percent Auto 73.1 % (45.5-73.1); Platelet Count Result 400 k/mm3 (150-375); Red Blood Count 3.14 M/mm3 (4.2-5.4); Red Cell Distribution Width 13.4 % (11.5-14.5); White Blood Count 8.5 K/mm3 (4.5-10.0)
[2023-08-24 05:52] LABS: Anion Gap 9 mmol/L (8-16); Blood Urea Nitrogen 20 mg/dL (7-17); Calcium 9.5 mg/dL (8.4-10.2); Carbon Dioxide 23 mmol/L (22-30); Chloride 98 mmol/L (98-107); Estimated CRCL calculation 35 ml/min; Estimated Glomerular Filt Rate > 60; Glucose 120 mg/dL (65-110); Potassium 3.8 mmol/L (3.4-5.0); Sodium 130 mmol/L (137-145)
[2023-08-24 05:53] VITALS: BP 126/80; PULSE 92; RESP 18; TEMP 36.6; O2SAT 99
--- NOTE | 2023-08-24 07:37 | PM.DS ---
DS: Admitting Diagnosis Discharge Date 08/24/23 Admitting Diagnosis Acute urinary retention Burst fracture of lumbar vertebra Anemia Atherosclerotic heart disease of [place] coronary artery without angina pectoris Aortic atherosclerosis DS: Discharge Diagnosis Discharge Diagnosis (1) Acute urinary retention: Code(s): R33.8 - Other retention of urine Status: Acute (2) Burst fracture of lumbar vertebra: Qualifiers: Encounter type: initial encounter Fracture type: closed Qualified Code(s): S32.001A - Stable burst fracture of unspecified lumbar vertebra, initial encounter for closed fracture Code(s): S32.001A - Stable burst fracture of unspecified lumbar vertebra, initial encounter for closed fracture Status: Chronic (3) Essential (primary) hypertension: Code(s): I10 - Essential (primary) hypertension Status: Chronic (4) Anemia: Code(s): D64.9 - Anemia, unspecified Status: Chronic (5) Atherosclerotic heart disease of [place] coronary artery without angina pectoris: Code(s): I25.10 - Atherosclerotic heart disease of [place] coronary artery without angina pectoris Status: Chronic (6) Aortic atherosclerosis: Code(s): I70.0 - Atherosclerosis of aorta Status: Chronic DS: Summary Hospital Course Reason for hospitalization: Urinary retention Hospital Course: This an 83 year old female who presented to the hospital on 08/22/23 with complaints of lower back pain for the last 3 days and inability to urinate. Her sister brought her in to the ER for further evaluation. Workup in the hospital showed that her bladder was distended and a Velazquez was placed at that time, initial output was 500 mL of urine. Patient immediately felt relief in her back pain. She also had a CT scan of her abdomen, pelvis, lumbar with contrast which showed a new L 2 burst fracture possibly acute or subacute with retropulsion into the canal causing significant central canal and bilateral neural foraminal stenosis. She also had a lumbar spine MRI with and without contrast which revealed a T10 burst fracture likely subacute, L2 burst fracture likely subacute, severe lumbar spondylosis and thoracolumbar dextroscoliosis. Patient had a urinalysis also performed which was negative for any acute infection. Neurosurgery was consulted. From neurosurgery standpoint they feel there is no spinal stenosis or nerve compression causing her urinary retention, they also stated that the L2 burst fracture appears to be subacute and that there is no further surgical intervention needed. Yesterday we went ahead and discontinued the Velazquez catheter. Patient has been voiding without difficulty through the night. Labs today revealed white blood cell count 8.5, hemoglobin 9.6, hematocrit 29.4, sodium 130, potassium 3.8, BUN 20, creatinine 0.6, blood sugars ranging 105-120. Vital signs have been stable, she is on room air, she has been afebrile. Patient is stable for discharge. Patient will follow-up with her primary care physician in 1 week. Status at Discharge Cognitive/behavioral status at discharge: Alert and oriented x4 Functional status at discharge: independent ambulation Overall status at discharge: patient is back to baseline Time Spent with Patient Time attestation: Total time spent providing and/or coordinating discharge services: Time spent: Greater than 30 minutes Exam Narrative: General: No acute distress, well appearing Head: Atraumatic Eyes: EOMI, PERRLA ENT: Moist mucous membranes Neck: Supple, no JVD, no lymphadenopathy, trachea midline CVS: S1 + S2, regular rate and rhythm, no murmurs, gallops, friction rub. Peripheral pulses intact Respiratory: Lungs clear to auscultation bilaterally, no adventitious lung sounds Abdomen: Soft, non-tender, nondistended, bowel sounds normoactive, no distention in her bladder felt on palpation Extremities: No clubbing, no edema Musculoskeletal: Move
[2023-08-24 08:00] VITALS: PULSE 92; RESP 18; O2SAT 99
[2023-08-24] MEDS: lisinopriL 20 MG TABLET 40 MG BY MOUTH (09:29)
[2023-08-24] MEDS: amLODIPine BESYLATE 5 MG TABLET PO (09:29)
--- NOTE | 2023-08-24 09:56 | PC.NURSE ---
Pt voided 100 mls. Bladder scan amount 183 mls post void.
== END 2023-08-24 13:25 | disposition home or self-care (01) | DRG 552 ==
LOC: ANHED 21:59 → ANH3MEDSUR 08-23 13:37
PROVIDERS: Family Medicine; Admitting Provider Family Medicine; Emergency Provider Student in an Organized Health Care Education/Training Program; PCP Family Medicine Adolescent Medicine; Visit Provider Family Medicine
DX: S22.071A Stable burst fracture of T9-T10 vertebra, initial encounter for closed fracture (principal); S32.021A Stable burst fracture of second lumbar vertebra, initial encounter for closed fracture; E44.0 Moderate protein-calorie malnutrition; Z68.1 Body mass index [BMI] 19.9 or less, adult; R33.8 Other retention of urine; X58.XXXA Exposure to other specified factors, initial encounter; D64.9 Anemia, unspecified; F03.90 Unspecified dementia, unspecified severity, without behavioral disturbance, psychotic disturbance, mood disturbance, and anxiety; I10 Essential (primary) hypertension; I25.10 Atherosclerotic heart disease of native coronary artery without angina pectoris; I70.0 Atherosclerosis of aorta; M48.061 Spinal stenosis, lumbar region without neurogenic claudication; M47.816 Spondylosis without myelopathy or radiculopathy, lumbar region; M41.9 Scoliosis, unspecified; R16.0 Hepatomegaly, not elsewhere classified; Z66 Do not resuscitate; Z28.21 Immunization not carried out because of patient refusal
CPT/HCPCS: 36415; 72132; 72158; 74177; 80048; 80053; 81003; 83690; 83735; 84100; 85025; 85610; 85730; 96374; 96375; 96376; 99285; A9270; A9577; J2270; J2405; J7030; Q9967

== ENCOUNTER 2023-11-08 09:19 | Emergency (ER) | payer MEDICARE, SELFPAY ==
[2023-11-08] VITALS (10 sets, daily range): BP systolic 117–145; BP diastolic 65–89; PULSE 98–109; RESP 11–25; TEMP 36.4; O2SAT 97–100
--- NOTE | ~2023-11-08 | XR_ITS ---
EXAMINATION: XR chest 2V DATE: 11/08/2023 10:30 INDICATION: Chest pain TECHNIQUE: frontal and lateral views of the chest were obtained. COMPARISON: Chest radiograph dated 10/05/2022 FINDINGS: Interval decrease in one month with mild opacities in the right lower lung zones and favor atelectasi s over pneumonia. No pulmonary edema, pleural effusion or pneumothorax. Heart size is normal. Mitral annular calcifications. Tortuous and atherosclerotic aorta. Right rotator cuff arthropathy with advan shanika right glenohumeral osteoarthritis. IMPRESSION: 1. Mildly decreased lung volume with mild bibasilar opacities and favor atelectasis over pneumonia. Reviewed, dictated and finalized at location A. N REDEVELOPMENT SPECIALIST IMPRESSION: 1. Mildly decreased lung volume with mild bibasilar opacities and favor atelect asis over pneumonia.
--- NOTE | ~2023-11-08 | CT_ITS ---
EXAMINATION: CT brain wo con DATE: 11/08/2023 13:40 INDICATION: Fall. TECHNIQUE: Computed tomography (CT) of the head was performed without intravenous contrast. The mA wa s adjusted according to patient size. Iterative reconstruction technique was employed. Exam dose: 60 5.33 mGy-cm total exam DLP. COMPARISON: 10/05/2022 CT brain FINDINGS: There is intravenous contrast material on board from the earlier 11/08/2023 CT pulmonary sca n. No evidence of focal cephalhematoma high over the posterior left parietal convexity. No skull fractur e or contrecoup intracranial injury is noted. Prominently calcified in the right vertebral artery, basilar artery calcification, prominent bilatera l carotid siphon and supraclinoid internal carotid artery calcifications. There is prominent nonspecific diminished attenuation cerebral white matter, possibly related to manager animal halima small vessel ischemic changes. Bilateral thalamic chronic lacunar infarcts. No intracranial mass lesion or hemorrhage or recent cerebrovascular accident, midline shift or mass e ffect is evident. There is moderately prominent central and cortical cerebral and cerebellar volume l oss. No subdural or epidural hematoma is detected. Mastoid air cells and paranasal sinuses are unremarkable. IMPRESSION: Focal cephalohematoma high over the posterior left parietal convexity; no skull fracture or acute intracranial finding Cerebral atherosclerosis and chronic small vessel ischemic changes of the cerebral white matter Reviewed, dictated and finalized at [facility]. Reviewed, dictated and finalized at [facility]. H WASHER IMPRESSION: Focal cephalohematoma high over the posterior left parietal convex ity; no skull fracture or acute intracranial finding Cerebral atherosclerosis and chronic small vessel ischemic changes of the cereb ral white matter
--- NOTE | ~2023-11-08 | CT_ITS ---
EXAMINATION: CTA chest PE protocol DATE: 11/08/2023 11:31 INDICATION: Chest pain post fall with syncopal episode. TECHNIQUE: Computed tomography (CT) pulmonary angiogram of the chest was performed with 100 mL Omnipa que-350 intravenous contrast. Additional 3D reconstructions utilizing coronal maximum intensity proje ction (MIP) were performed. Automated exposure control and iterative reconstruction technique were em ployed. The dose-length product was 127.86 mGy-cm. COMPARISON: CT abdomen pelvis dated 08/22/2023 FINDINGS: Excellent contrast opacification of the pulmonary arteries. There is mild streak artifact from dense contrast in the superior vena cava and right atrium. Mild to moderate scattered respiratory motion ar tifact most prominent at the lower lung zones where it decreases sensitivity in some of the smaller s ubsegmental pulmonary arteries. No pulmonary embolism. Mild emphysema. Mild dependent atelectasis in bilateral lower lobes. No pneumonia, pulmonary edema, pleural effusion or pneumothorax. Mild cardiome brigida. Atherosclerotic coronary artery calcification. No pericardial effusion. Mildly tortuous and ath erosclerotic thoracic aorta which is normal in caliber with no dissection. Enlargement of the central pulmonary arteries consistent with pulmonary arterial hypertension. No pathologically enlarged thora cic lymphadenopathy. Thoracic kyphosis with multiple compression and burst fractures at T6, T8, T10 a nd L2, the latter with significant retropulsion resulting in moderate to severe central canal stenosi s. There is been significant progression in now 60% vertebral body height loss at T10 since lumbar sp ine MR dated 08/23/2023 IMPRESSION: 1. No pulmonary embolism. 2. Mild emphysema with mild dependent atelectasis in both lungs. 3. Cardiomegaly with enlargement of the central pulmonary arteries consistent with pulmonary arterial hypertension. 4. Multiple chronic compression and burst fractures in the thoracic and upper lumbar spine with inter josue progression since 08/23/2023 at T10 and unchanged secondary moderate to severe central canal steno sis at L2. Reviewed, dictated and finalized at [facility]. 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 No pulmonary embolism. 2. Mild emphysema with mild dependent atelectasis in both lungs. 3. Cardiomegaly with enlargement of the central pulmonary arteries consistent w ith pulmonary arterial hypertension. 4. Multiple chronic compression and burst fractures in the thoracic and upper l umbar spine with interval progression since 08/23/2023 at T10 and unchanged seco ndary moderate to severe central canal stenosis at L2.
--- NOTE | ~2023-11-08 | CT_ITS ---
EXAMINATION: CT cervical spine wo con DATE: 11/08/2023 13:42 INDICATION: Fall. TECHNIQUE: Computed tomography (CT) of the cervical spine was performed without intravenous contrast. Automated exposure control and iterative reconstruction technique were employed. Exam dose: 114.82 mGy-cm total exam DLP. COMPARISON: 10/05/2022 CT cervical spine FINDINGS: There is interval sclerosis consistent along the fracture margins of the C2 odontoid proces s base fracture since 10/05/2022. The fracture line is still largely lucent. There is chronic ununited fracture at the right C2 lamina. No new cervical spine fracture or locked facet is evident. There is severe degenerative disease at C3-4, C4-5 and C5-6 and moderate degenerative disease at C6-7 . There is degenerative change at the apophyseal joints. Moderate burst fracture deformity of C6; this area was not included in the 10/05/[address] examination. Minimal anterior wedging of T5 vertebral body. 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 Severe cervical spondylosis with particularly severe degenerative disease at C3-4, C4-5 and C5-6 Reviewed, dictated and finalized at [facility]. Reviewed, dictated and finalized at [facility]. 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 Severe cervical spondylosis with particularly severe degenerative disease at C3 -4, C4-5 and C5-6
--- NOTE | 2023-11-08 09:30 | ECG_ITS ---
Measurements Intervals [place] Rate: 96 P: 45 TX: 186 QRS: 13 QRSD: 78 T: 43 QT: 348 QTc: 441 Interpretive Statements SINUS RHYTHM LOW QRS VOLTAGE IN PRECORDIAL LEADS CANNOT RULE OUT SEPTAL INFARCT, AGE INDETERMINATE BORDERLINE ST-T WAVE ABNORMALITY- ANTEROLATERAL LEADS ABNORMAL ECG COMPARED TO ECG 07/13/2019 14:02:24 SINUS RHYTHM NOW PRESENT Electronically Signed On 11-08-2023 10:06:03 TEST GRADER by Tom Crow D.O.
[2023-11-08 09:42] LABS: Basophils Percent Auto 0.2 % (0.2-1.2); Eosinophils Percent Auto 0.2 % (0-4.4); Hematocrit 27.8 % (37.0-47.0); Hemoglobin 8.9 g/dL (12.0-15.0); Immature Granulocyte Absolute 0.12 K/mm3 (0.00-0.031); Immature Granulocyte Percent A 0.9 % (0-0.5); Lymphocytes Absolute Auto 0.71 K/mm3 (0.9-3.2); Lymphocytes Percent Auto 5.2 % (18.3-44.2); Mean Corpuscular Hemoglobin 30.8 pg (26-34); Mean Corpuscular Volume 96.2 fl (80-100); Mean Platelet Volume 8.6 fl (7.4-10.4); Monocytes Absolute Auto 1.1 K/mm3 (0.1-0.6); Monocytes Percent Auto 7.7 % (2.6-8.5); Neutrophils Absolute Auto 11.7 K/mm3 (1.3-6.7); Neutrophils Percent Auto 85.8 % (45.5-73.1); Platelet Count Result 342 k/mm3 (150-375); Red Blood Count 2.89 M/mm3 (4.2-5.4); Red Cell Distribution Width 13.5 % (11.5-14.5); White Blood Count 13.7 K/mm3 (4.5-10.0)
[2023-11-08 09:53] LABS: Alanine Aminotransferase 17 U/L (6-35); Albumin Level 3.9 g/dL (3.5-5.1); Alkaline Phosphatase 202 U/L (38-126); Anion Gap 7 mmol/L (8-16); Aspartate Amino Transferase 26 U/L (14-36); Bilirubin,Total 0.3 mg/dL (0.2-1.3); Blood Urea Nitrogen 17 mg/dL (7-17); Carbon Dioxide 24 mmol/L (22-30); Chloride 96 mmol/L (98-107); Estimated CRCL calculation 31 ml/min; Estimated Glomerular Filt Rate > 60; Glucose 115 mg/dL (65-110); Lipase 94 U/L (23-300); Potassium 4.2 mmol/L (3.4-5.0); Sodium 127 mmol/L (137-145)
[2023-11-08 09:54] LABS: INR 0.9; Prothrombin Time 12.7 Seconds (11.1-14.7)
[2023-11-08 09:55] LABS: Partial Thromboplastin Time 30.1 SECONDS (22.3-36.8)
[2023-11-08 10:03] LABS: Troponin I < 0.012 ng/mL (0.000-0.034)
--- NOTE | 2023-11-08 10:55 | ED.GENADULT ---
HPI - General Adult General Chief complaint: Chest Pain Stated complaint: glf/ cp Time Seen by Provider: 11/08/23 10:36 Source: patient Mode of arrival: EMS Limitations: no limitations History of Present Illness HPI narrative: This is a 83-year-old female presents to the ED via EMS for chief complaint of a fall and subsequent chest pain. Reports that she was using the restroom this morning she stood up off the toilet she started to feel very lightheaded and fell down to the ground. Reports that she hit the back of her head and that her chest is now very sore after the fall. denies any preceding chest pain, shortness of breath, lightheadedness or sweating. Related Data Home Medications Medication Instructions Recorded Confirmed lisinopril 20 mg tablet 40 mg DAILY 08/23/23 08/27/23 Allergies Allergy/AdvReac Type Severity Reaction Status Date / Time No Known Allergies Allergy Verified 08/27/23 13:54 Review of Systems Review of Systems: All systems as dictated in [facility] Past Medical History Medical History (Updated 11/08/23 @ 16:46 by Dwight Gudino PA-C) Cyst of buttocks Dementia Essential (primary) hypertension Odontoid fracture Family History Family History Other Cerebrovascular accident Mother Hypertension Social History Social History Smoking status: Never smoker Alcohol intake: never Substance use: never Lack of Transportation: No Lack of Food: Never True Current Housing: I Have Housing Concerned About Future Housing: No Difficulty Paying Gas/Electric Bills: No Difficulty Paying for Meds: No Currently Unemployed: No Education: High School Diploma/GED Difficulty w/ Childcare or Family Care: No Spiritual care concerns: No Exam Narrative: GENERAL: Well-appearing, well-nourished, and in no acute distress. HEAD: Normocephalic, atraumatic. EYES: PERRLA and EOMI. ENT: Nares clear, no rhinorrhea or epistaxis. Mucous membranes moist. Oropharynx without tonsillar hypertrophy exudate or other lesions. NECK: Supple. No adenopathy or masses. CHEST: No respiratory distress. Clear to auscultation. No wheezes rales or rhonchi . Moderate chest wall tenderness over the sternum and bilateral anterior ribs. no crepitus or bruising. HEART: Regular rate and rhythm. No murmur heard. Normal peripheral pulses. ABDOMEN: Soft, nontender, nondistended, normal active bowel sounds. MSK: Normal range of motion. No edema. SKIN: Warm, dry, no rash. NEURO: Alert and oriented x3. No focal deficits. PSYCH: Normal mood and affect. Course Vital Signs Vital signs: Vital Signs Temperature 97.6 F 11/08/23 09:24 Pulse Rate 99 11/08/23 09:24 Respiratory Rate 24 H 11/08/23 09:24 Blood Pressure 117/65 11/08/23 09:24 Pulse Oximetry 100 11/08/23 09:24 Temperature 97.6 F 11/08/23 09:24 Pulse Rate 107 H 11/08/23 16:31 Respiratory Rate 19 11/08/23 16:31 Blood Pressure 145/89 H 11/08/23 16:31 Pulse Oximetry 100 11/08/23 16:31 Oxygen Delivery Room Air 11/08/23 09:31 Medical Decision Making MDM Narrative Medical decision making narrative: This is a 83-year-old female who presents to the ED via EMS for chief complaint of a ground level fall. She fell after she stood up quickly off toilet. Triage note mentions chest pain but patient suffered as a chest injury during the fall. Low concern for cardiac origin of chest pain today. Vitals initially shows slight tachypnea but otherwise normal. EKG shows a sinus tachycardia with rate of 116. Lab work shows slightly elevated white count at 13.7. Hemoglobin 8.9 but seems to be chronically around this level. She is denying any bleeding symptoms. CMP initially shows slight hyponatremia at 1:27 a.m. but again not far off from her baseline. BNP normal. Serial troponins are normal. Urinalysis
[2023-11-08] MEDS: SODIUM CHLORIDE 0.9% IV 1,000 ML 999 ML IV CONT (11:13)
--- NOTE | 2023-11-08 11:25 | PC.NURSE ---
Lab states pts troponin level is <0.012 BNP added on
[2023-11-08 11:46] LABS: NT Pro B Type Natriuretic Pept 355 pg/mL (19.9-100)
[2023-11-08] MEDS: MORPHINE SULFATE (*CRX) 2 MG/ML INJ IV PUSH (11:47)
[2023-11-08 13:00] LABS: Troponin I < 0.012 ng/mL (0.000-0.034)
[2023-11-08] MEDS: SODIUM CHLORIDE 0.9% IV 500 ML 999 ML IV CONT (13:29)
[2023-11-08 13:40] LABS: Appearance Urine Clear (Clear); Bacteria Urine None Seen /hpf; Bilirubin Urine Negative (Negative); Color Urine Yellow (Yellow); Glucose Urine UA Negative (Negative); Ketones Urine Negative (Negative); Leukocyte Esterase Ur Negative LEU/UL (Negative); Nitrate Urine Negative (Negative); Non Pathogenic Casts 0-2; Protein Urine Negative (Negative); Specific Grav Ur 1.015 (1.001-1.035); Squamous Epithelial Cell Urine None seen /hpf (Few); Urobilinogen Urine 0.2 mg/dL (<2.0); WBC Urine 0-5 /hpf; pH Urine 7.5 (5.0-9.0)
[2023-11-08 13:42] LABS: Add Urine Microscopic? YES
[2023-11-08 15:15] LABS: Lactic Acid Reflex 0.9 mmol/L (0.7-2.0)
[2023-11-08 15:41] LABS: Influenza A QL RT-PCR Negative (Negative); Influenza B QL RT-PCR Negative (Negative); RSV RNA, RT-PCR Negative (Negative); SARS-CoV-2 RNA PCR Negative (Negative)
[2023-11-08] MEDS: KETOROLAC 15 MG/ML VIAL (*BKC) IV PUSH (16:29)
[2023-11-08] MEDS: LIDOCAINE 5% PATCH 1 PATCH TRANSDERM (16:29)
[2023-11-08 16:32] LABS: Anion Gap 7 mmol/L (8-16); Blood Urea Nitrogen 12 mg/dL (7-17); Carbon Dioxide 23 mmol/L (22-30); Chloride 100 mmol/L (98-107); Estimated CRCL calculation 42 ml/min; Estimated Glomerular Filt Rate > 60; Glucose 115 mg/dL (65-110); Potassium 3.7 mmol/L (3.4-5.0); Sodium 130 mmol/L (137-145)
[2023-11-08 16:43] LABS: Troponin I 0.028 ng/mL (0.000-0.034)
--- NOTE | 2023-11-08 16:50 | PC.NURSE ---
Spoke with pts INDRA who states he is on his way to come get pt.
--- NOTE | 2023-11-08 17:21 | ECG_ITS ---
Measurements Intervals [place] Rate: 116 P: 45 [place]: 192 QRS: 13 QRSD: 65 T: 63 QT: 423 QTc: 589 Interpretive Statements SINUS TACHYCARDIA LOW QRS VOLTAGE IN PRECORDIAL LEADS CANNOT RULE OUT SEPTAL INFARCT, AGE INDETERMINATE BORDERLINE ST-T WAVE ABNORMALITY- DIFFUSE LEADS BASELINE ARTIFACT- I, II, III, AVL, AVF, V1-V2 ABNORMAL ECG COMPARED TO ECG 11/08/2023 09:32:34 SINUS TACHYCARDIA NOW PRESENT Electronically Signed On 11-09-2023 8:01:52 RUBBER OFF by Tom Crow D.O.
== END 2023-11-08 17:17 | disposition home or self-care (01) ==
PROVIDERS: Emergency Medicine; Emergency Provider Physician Assistant; PCP Family Medicine Adolescent Medicine
DX: E86.0 Dehydration (principal); S29.9XXA Unspecified injury of thorax, initial encounter; S09.90XA Unspecified injury of head, initial encounter; F03.90 Unspecified dementia, unspecified severity, without behavioral disturbance, psychotic disturbance, mood disturbance, and anxiety; I10 Essential (primary) hypertension; Z11.52 Encounter for screening for COVID-19; W18.39XA Other fall on same level, initial encounter; R00.0 Tachycardia, unspecified; R94.31 Abnormal electrocardiogram [ECG] [EKG]; J43.9 Emphysema, unspecified; I51.7 Cardiomegaly; M48.061 Spinal stenosis, lumbar region without neurogenic claudication; I67.2 Cerebral atherosclerosis; M47.812 Spondylosis without myelopathy or radiculopathy, cervical region
CPT/HCPCS: 36415; 70450; 71046; 71275; 72125; 80048; 80053; 81001; 83605; 83690; 83880; 84484; 85025; 85610; 85730; 87637; 93005; 96361; 96374; 96375; 99284; A9270; J1885; J2270; J7030; J7040; Q9967

== ENCOUNTER 2024-02-06 11:51 | Outpatient (CLI) | payer MEDICARE, SELFPAY ==
--- NOTE | ~2024-02-06 | XR_ITS ---
EXAM: XR shoulder RT min 2V DATE: 02/06/2024 12:18 HISTORY: M19.011 - Primary osteoarthritis, right shoulder . COMPARISON: X-ray humerus, same date. FINDINGS: Decreased mineralization. Multiple mildly angulated and nondisplaced left lateral and ante rolateral rib fractures, some of which appear to display evidence of healing. No definite acute fract ure or dislocation. No lytic or blastic lesion. High riding humeral head, significant erosion and def ormity of the glenohumeral articulation. Eccentric lucency in the proximal humeral diaphysis, no aggr essive features, better seen in the prior humeral radiograph. No periosteal changes. Soft tissues wit hin normal limits. IMPRESSION: Severe osteopenia. Severe, end-stage right shoulder arthritis, possibly inflammatory, correlate for history of laborator y findings of rheumatoid arthritis. Lucent lesion in the proximal right humeral diaphysis, no aggressive features, possibly benign, altho ugh myeloma and metastases remain in the differential. Multiple left lateral and anterolateral rib fractures, several appear chronic or subacute, correlate for pain/tenderness. Reviewed, dictated and finalized at [facility]. IMPRESSION: Severe osteopenia. Severe, end-stage right shoulder arthritis, possibly inflammatory, correlate fo r history of laboratory findings of rheumatoid arthritis. Lucent lesion in the proximal right humeral diaphysis, no aggressive features, possibly benign, although myeloma and metastases remain in the differential. Multiple left lateral and anterolateral rib fractures, several appear chronic o r subacute, correlate for pain/tenderness.
--- NOTE | ~2024-02-06 | XR_ITS ---
Right Humerus Technique: AP and lateral views were obtained. Clinical History: Arthritis COMPARISON: Chest x-ray dated 11/08/2023 Findings: No fracture or dislocation is seen. Humeral head is high riding. There is severe degenerati ve change and chronic remodeling of the glenoid. Joint spaces of the elbow appear intact. Soft tissue s are unremarkable. Impression: Severe glenohumeral degenerative change and chronic remodeling of the glenoid with high riding deisi l head. Findings are stable since 11/08/2023. Reviewed, dictated and finalized at [facility]. Impression: Severe glenohumeral degenerative change and chronic remodeling of the glenoid w ith high riding humeral head. Findings are stable since 11/08/2023.
== END 2024-02-06 11:52 ==
PROVIDERS: PCP Family Medicine Adolescent Medicine; Visit Provider Family Medicine Adolescent Medicine
DX: M19.011 Primary osteoarthritis, right shoulder (principal); M85.811 Other specified disorders of bone density and structure, right shoulder; S22.42XA Multiple fractures of ribs, left side, initial encounter for closed fracture; X58.XXXA Exposure to other specified factors, initial encounter
CPT/HCPCS: 73030; 73060